=== PATIENT | male | born 1965 | race Asian ===

== ENCOUNTER 2017-06-30 08:00 | Outpatient (RCR) | payer OTHER | END 2017-07-01 | disposition home or self-care (01) | LOC: PTY 08:00 | DX: M75.02 Adhesive capsulitis of left shoulder (principal) ==

== ENCOUNTER 2017-07-28 08:00 | Outpatient (RCR) | payer OTHER | END 2017-08-01 | disposition home or self-care (01) | LOC: PTY 08:00 | DX: M75.02 Adhesive capsulitis of left shoulder (principal) ==

== ENCOUNTER 2017-08-09 09:00 | Outpatient (RCR) | payer OTHER | END 2017-08-31 | disposition home or self-care (01) | LOC: PTY 09:00 | DX: M75.02 Adhesive capsulitis of left shoulder (principal) ==

== ENCOUNTER 2017-12-06 07:00 | Outpatient (RCR) | payer OTHER | END 2017-12-30 | disposition home or self-care (01) | LOC: PTY 07:00 | DX: M75.02 Adhesive capsulitis of left shoulder (principal) ==

== ENCOUNTER 2018-01-26 07:00 | Outpatient (RCR) | payer OTHER | END 2018-01-29 | disposition home or self-care (01) | LOC: PTY 07:00 | DX: M75.02 Adhesive capsulitis of left shoulder (principal) ==

== ENCOUNTER 2018-05-18 07:00 | Outpatient (RCR) | payer OTHER | END 2018-06-01 | disposition home or self-care (01) | LOC: PTY 07:00 | DX: M75.02 Adhesive capsulitis of left shoulder (principal) ==

== ENCOUNTER 2018-06-06 08:08 | Outpatient (RCR) | payer OTHER | END 2018-07-01 | disposition home or self-care (01) | LOC: PTY 08:08 | DX: M75.02 Adhesive capsulitis of left shoulder (principal) ==